=== PATIENT | female | born 1935 | race Caucasian/White ===

== ENCOUNTER 2016-04-23 15:48 | Emergency (ER) | payer MEDICARE, MEDICAID ==
[~2016-04-23] VITALS: Ht 172.7 cm; Wt 81.6 kg
[~2016-04-23 15:48] MED LIST: ALBU8.5H4 IH; ASPI325T32 PO; BIMA2.5D5 OD; BOTOX; CARV12.52 PO; CYCL5TAB PO; FURO40TA4 PO; LEVO112T4 PO; LIDO5CRE13 TOP; LIP40 PO; MONT10TA20 PO; OMEP40CA36 PO; POLY119P4 PO; POTA20TA7 PO; PSYL425P3 PO; THIO300C PO
[2016-04-23 16:00] VITALS: BP 141/82; PULSE 75; RESP 15; O2SAT 98
[2016-04-23 17:12] LABS: BASOPHILS % (AUTO) 0.6 % (0-3); EOSINOPHILS % (AUTO) 6.6 % (0-5); MONOCYTES % (AUTO) 11.7 % (4-12); Mean Corpuscular Hemoglobin 27.9 pg (27.0-35.0); Mean Corpuscular Volume 88.3 fL (81-100); NEUTROPHILS % (AUTO) 52.8 % (40-74); Platelet Count 188 bil/L (150-400)
[2016-04-23 17:36] LABS: Magnesium 1.9 mg/dL (1.6-2.6)
--- NOTE | 2016-04-23 18:37 | ED.REPORT ---
HPI-General Illness Date of Service Apr 23, 2016 ED Provider: MD Dillon This is an 81 year old female with a history of CHF, COPD, CAD, HTN, hyperlipidemias, [place] presenting to the emergency department complaining of abdominal cramping of unknown onset. Reports constipation, increased flatulence , acid reflux, esophageal burning, and indigestion which has caused decreased PO intake. Denies fever, chills, abdominal pain, diarrhea, nausea, and vomiting. These symptoms have been going on for over one month, and the patient has been seeing her primary care physician for them. She reports that she can swallow foods down into her throat, but then she feels as though they get stuck in the middle of her chest. Nursing Notes Stated Complaint: HARD TO SWOLLOW/BOWEL BLOCKAGE Chief Complaint: Female Abdominal Pain Nursing Notes Reviewed: Yes Allergies: Coded Allergies: codeine (Verified Allergy, Unknown, 11/09/15) Scheduled Alpha Lipoic Acid (Alpha Lipoic Acid) 300 Mg Capsule 300 MG PO BID Aspirin (Aspirin) 325 Mg Tablet.dr 325 MG PO DAILY Atorvastatin (Lipitor) 40 Mg Tablet 40 MG PO DAILY Bimatoprost (Lumigan) 45 Drop/2.5 Ml Ophsoln 45 DROP OD HS Carvedilol (Carvedilol) 12.5 Mg Tablet 12.5 MG PO BID Furosemide (Furosemide) 40 Mg Tablet 40 MG PO DAILY Levothyroxine (Levothyroxine) 112 Mcg Tablet 112 MCG PO DAILY Montelukast (Singulair) 10 Mg Tablet 10 MG PO HS Omeprazole (Omeprazole) 40 Mg Capsule.dr 40 MG PO DAILYAC PRN Polyethylene Glycol 3350 (Miralax) 119 Gm Powder 119 GM PO BID Potassium Chloride ER (Klor-Con M20) 20 Meq Tab.er.prt 20 MEQ PO DAILYWM Psyllium Seed (Metamucil) 425 Gm Powder 425 GM PO BID Scheduled PRN Albuterol HFA (Albuterol HFA) 8.5 Gm Hfa.aer.ad 1 PUFF IH Q4 PRN PRN For Shortness of Breath Cyclobenzaprine (Cyclobenzaprine) 5 Mg Tablet 5 MG PO HS PRN PRN Spasm Miscellaneous Medications ([Botox]) Q 3 MONTHS HEADACHES Lidocaine/Prilocaine (Emla Cream) 5 Gm Kit 5 GM TOP WITH BOTOX INJECTIONS Q 3 MONTHS General Time Seen by : 18:37 Chief Complaint Other Hx Obtained From: Patient Arrived By: Walk-in Sudden in Onset?: No Symptom Duration: Since onset Severity: Current: No pain currently Pertinent Negative: Pt denies other symptoms Recent Healthcare: No recent doctor visit, No recent hospitalization Similar Sx Previous: No Past Medical History Past Medical History History of constipation, questionable previous partial obstruction Vaginal prolapse - planned to have surgery for this Hx of drop neck, 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 Reports: COPD, Congestive heart failure, Coronary artery disease, Hyperlipidemia , Hypertension Past Surgical History Surgery for nephrolithiasis Stent placement Cardiac catheterization Reports: Hysterectomy Family History Noncontributory Smoking History Former Smoker Social History Alcohol Use: Denies alcohol use Drug Use: Denies drug use Other Social History: Good social support, Local resident Ambulatory Status Independent Review of Systems Full Review of Systems Constitutional: Denies: Chills, Fever Respiratory: Denies: Parox nocturnal dyspnea, Shortness of breath GI: Reports: Abdominal pain, Denies: Constipation, Diarrhea, Nausea, Vomiting Female: Denies: Dysuria Complete sys rev & neg: except as marked. Physical Exam Vital Signs Vital Signs Date Time Temp Pulse Resp B/P Pulse Ox O2 Delivery O2 Flow Rate FiO2 04/23/16 19:56 36 75 15 141/82 98 Room Air 04/23/16 16:00 36 75 15 141/82 98 Room Air Initial VS: Reviewed General/Constitutional: Well-developed, Well-nourished Head / Eyes: Atraumatic, Normocephalic, PERRL ENT: Mucous membranes moist, Conjunctiva normal, No scleral icterus Neck: Supple, Non-tender, Full range of motion Respiratory: Breath sounds normal, Clear to auscultation, No respiratory distress Cardiovascular: Regular rate & rhythm, Heart sounds normal, Intact distal pulses Extremities: Vascular intact, Neuro intact, No swelling, No tenderness Skin: Warm, Dry, No cyanosis Psychiatric: Mood/affect normal, Behavior normal, Normal thought content Abdomen: Soft, Non-tender, No guarding, No rebound, BS normoactive Neurologic: Oriented X3, Speech NL, No motor deficits, No sensory deficits, CN II - XII intact Interpretation & Diagnostics Interpretation & Diagnostics: ABD X-RAY IMPRESSION: 1. Moderate colonic stool distention suggestive of constipation. No evidence of obstruction. 2. Mild prominence of right hilum likely due to low lung volumes. Consider repeat PA and lateral study when clinically feasible. Dictated by: Yash Gallo M.D. on 04/23/2016 at 19:16 Approved by: Yash Gallo M.D. on 04/23/2016 at 19:24 Lab Results Interpretation Result Diagram: 04/23/16 1700 04/23/16 1700 Test 04/23/16 17:00 White Blood Count 6.9th/mm3 (3.8-10.1) Red Blood Count 4.26mil/mm3 (3.90-5.20) Hemoglobin 11.9g/dL (12.0-15.6) Hematocrit 37.6% (35.0-46.0) Mean Corpuscular Volume 88.3fL (81-100) Mean Corpuscular Hemoglobin 27.9pg (27.0-35.0) Mean Corpuscular Hemoglobin Concent 31.6% (32.0-37.0) Red Cell Distribution Width 15.1% (12.3-15.4) Platelet Count 188bil/L (150-400) Neutrophils (%) (Auto) 52.8% (40-74) Lymphocytes (%) (Auto) 28.2% (14-46) Monocytes (%) (Auto) 11.7% (4-12) Eosinophils (%) (Auto) 6.6% (0-5) Basophils (%) (Auto) 0.6% (0-3) Sodium Level 140mEq/L (134-144) Potassium Level 4.8mEq/L (3.5-5.2) Chloride Level 104mEq/L (97-108) Carbon Dioxide Level 25mmol/L (18-29) Blood Urea Nitrogen 19mg/dL (8-27) Creatinine 0.78mg/dL (0.57-1.00) Estimat Glomerular Filtration Rate 102mL/min (>59) Glucose Level 97mg/dL (60-99) Calcium Level 8.9mg/dL (8.5-10.1) Magnesium Level 1.9mg/dL (1.6-2.6) Total Bilirubin 0.2mg/dL (0.0-1.2) Aspartate Amino Transf (AST/SGOT) 17U/L (0-50) Alanine Aminotransferase (ALT/SGPT) 13U/L (0-32) Alkaline Phosphatase 87U/L (25-165) Total Protein 6.3g/dL (6.4-8.4) Albumin 3.7g/dL (3.4-5.0) Lipase 23U/L (13-60) Hold Carrasquillo Top Tube Received (Received) Re-Eval/Medical Decision Med Decision/Clinical Course 81-year-old female with extensive past medical history who is here with constipation and feeling of incomplete swallowing. Differential diagnosis includes but is not limited to achalasia versus constipation versus bowel perforation versus stroke. Patient's exam is not consistent with bowel perforation, and the way she describes her difficulty swallowing as not consistent with stroke. Additionally, the symptoms have been going on for over a month, and she has been seeing her primary care physician for them. At this time, I do not feel she requires workup for stroke or bowel perforation. Her abdominal x-ray showed stool but was otherwise unremarkable, and her labs were unremarkable. She is amenable to discharge at this time with follow-up with her primary care physician or likely outpatient swallow study. He has been given very strict return precautions. Counseled Regarding: Diagnosis, Lab results, Need for follow-up, When/why to return to ED Discharge & Departure Primary Impression: Constipation Constipation type: unspecified constipation type Qualified Code: K59.00 - Constipation, unspecified Disposition: Home Discharge Condition All VS Reviewed: Yes Condition: Stable Patient Instructions: Constipation (ED) Additional Instructions: Thank you for seeking care at the emergency department today. Your workup was reassuring. Please follow up with Dr. Rodriguez for further evaluation of your symptoms. Return to the emergency department for any new or worsening symptoms Referrals: Neville Rodriguez MD (PCP) Scribe Attestation Portions of this note were transcribed by Susan Garsia. I, Dr. Carranza personally performed the history, physical exam and medical decision-making; I reviewed and confirmed the accuracy of the information in the transcribed note. Signed by: rosemary Larson. 04/23/2016, 23:00. Marisa Carranza MD Apr 23, 2016 18:37 SUSAN GARSIA Apr 23, 2016 18:40
--- NOTE | 2016-04-23 19:26 | DRSVH ---
PROCEDURE: X-RAY ACUTE ABDOMINAL SERIES ([id number]) INDICATIONS: possible blockage TECHNIQUE: One view chest and two views of the abdomen were acquired. COMPARISON: [facility], , CHEST 1VW (PORTABLE), 07/22/2014, 7:12. FINDINGS: Surgical changes and devices: There is surgical clips in the right upper quadrant. Chest: There low lung volumes without consolidation. Mild prominence of the right hilum is likely du e to low volumes. Heart size is normal. No pleural effusions. No pneumoperitoneum. Abdomen: Bowel gas pattern demonstrates moderate colonic stool distention suggestive of constipation . No dilated bowel loops or air-fluid levels to suggest obstruction. There are a few scattered vasc ular calcifications. Bones: No suspicious bony lesions. IMPRESSION: 1. Moderate colonic stool distention suggestive of constipation. No evidence of obstruction. 2. Mild prominence of right hilum likely due to low lung volumes. Consider repeat PA and lateral st udy when clinically feasible. Dictated by: Yash Gallo M.D. on 04/23/2016 at 19:16 Approved by: Yash Gallo M.D. on 04/23/2016 at 19:24
[2016-04-23 19:56] VITALS: BP 141/82; PULSE 75; RESP 15; O2SAT 98
== END 2016-04-23 19:57 | disposition home or self-care (01) ==
LOC: SED 15:48
DX: K59.00 Constipation, unspecified (principal); R10.9 Unspecified abdominal pain; I50.9 Heart failure, unspecified; J44.9 Chronic obstructive pulmonary disease, unspecified; I10 Essential (primary) hypertension; I25.10 Atherosclerotic heart disease of native coronary artery without angina pectoris; E78.5 Hyperlipidemia, unspecified; Z98.61 Coronary angioplasty status; Z87.891 Personal history of nicotine dependence; Z88.5 Allergy status to narcotic agent; Z79.82 Long term (current) use of aspirin

== ENCOUNTER 2016-07-31 12:47 | Emergency (ER) | payer MEDICARE, MEDICAID ==
[~2016-07-31] VITALS: Ht 170.2 cm; Wt 79.5 kg
[2016-07-31 12:51] VITALS: BP 153/73; PULSE 80; RESP 16; O2SAT 99
[2016-07-31] MEDS ORDERED: CARB1TAB14 PO (12:57)
[2016-07-31] MEDS ORDERED: DIAZ2TAB2 PO (12:57)
--- NOTE | 2016-07-31 12:58 | ED.REPORT ---
HPI-General Illness Date of Service July 31, 2016 ED Provider: Rodrigue Cortez MD Patient is an 81 year old female with a history of Parkinson's, [place], COPD, stent placement who presents to the ED complaining of bilateral leg swelling onset a month ago. Associated symptoms include her legs feeling warm to the touch. She denies chest pain or shortness of breath. The patient states that she normally has some edema in her legs but it has been getting progressively worse. She has tried compression socks but her legs have become more swollen, causing pain and difficulty getting the socks off. Patient denies a history of CHF. The patient currently takes 40mg of Lasix and recently started taking Leva Dopa for Parkinson's. She was seen two weeks ago by Dr. Rodriguez, who recommended she have an ultrasound to check for a possible DVT. Nursing Notes Stated Complaint: RIGHT LEG/FEET SWOLLEN Chief Complaint: General Complaint Nursing Notes Reviewed: Yes Allergies: Coded Allergies: codeine (Verified Allergy, Unknown, 07/31/16) Scheduled Alpha Lipoic Acid (Alpha Lipoic Acid) 300 Mg Capsule 300 MG PO BID Aspirin (Aspirin) 325 Mg Tablet.dr 325 MG PO DAILY Atorvastatin (Lipitor) 40 Mg Tablet 40 MG PO DAILY Carbidopa/Levodopa 25-100 mg (Carbidopa/Levodopa 25-100 mg) 1 Each Tablet 1 TABLET PO TID Carvedilol (Carvedilol) 12.5 Mg Tablet 12.5 MG PO BID Furosemide (Furosemide) 40 Mg Tablet 40 MG PO DAILY Levothyroxine (Levothyroxine) 112 Mcg Tablet 112 MCG PO DAILY Omeprazole (Omeprazole) 40 Mg Capsule.dr 40 MG PO DAILYAC PRN Polyethylene Glycol 3350 (Miralax) 119 Gm Powder 119 GM PO BID Potassium Chloride ER (Klor-Con M20) 20 Meq Tab.er.prt 20 MEQ PO DAILYWM Psyllium Seed (Metamucil) 425 Gm Powder 425 GM PO BID Scheduled PRN Albuterol HFA (Albuterol HFA) 8.5 Gm Hfa.aer.ad 1 PUFF IH Q4 PRN PRN For Shortness of Breath Diazepam (Diazepam) 2 Mg Tablet 2 MG PO BID PRN PRN For Anxiety Miscellaneous Medications ([Botox]) Q 3 MONTHS HEADACHES General Time Seen by MD: 12:57 Chief Complaint Other (bilateral leg swelling) Hx Obtained From: Patient Arrived By: Walk-in Sudden in Onset?: No Onset Occurred: More than a week ago... (1 month) Symptom Duration: Since onset Location: : Ankle left: Ankle right: Foot left: Foot right Associated with: Denies: Chest pain, Shortness of breath Recent Healthcare: No recent hospitalization, Recent doctor visit Similar Sx Previous: Yes Past Medical History Past Medical History History of constipation, questionable previous partial obstruction Vaginal prolapse - planned to have surgery for this Hx of drop neck, followed by Dr. Malena BOOTHE Parkinson's Reports: COPD, Coronary artery disease, Hyperlipidemia, Hypertension Past Surgical History Surgery for nephrolithiasis Stent placement Cardiac catheterization Reports: Hysterectomy Family History Noncontributory Smoking History Former Smoker Social History Alcohol Use: Denies alcohol use Drug Use: Denies drug use Other Social History: Good social support, Local resident Ambulatory Status Independent Review of Systems Full Review of Systems Respiratory: Denies: Non-productive cough, Shortness of breath Cardiovascular: Denies: Chest pain Musculoskeletal: Reports: Extremity swelling (both legs), Denies: Extremity pain Complete sys rev & neg: except as marked. Physical Exam Vital Signs Vital Signs Date Time Temp Pulse Resp B/P Pulse Ox O2 Delivery O2 Flow Rate FiO2 07/31/16 12:51 36.2 80 16 153/73 99 Room Air Initial VS: Reviewed General/Constitutional: Awake, Alert Head / Eyes: Atraumatic, Normocephalic, PERRL, EOMI ENT: Atraumatic, Airway patent, Mucous membranes moist Respiratory / Chest: Atraumatic, Breath sounds NL, Breath sounds = bilat, No respiratory distress Cardiovascular: Heart rate NL, Regular rhythm, Heart sounds NL, No gallop, No murmurs, No rubs LOWER EXTREMITIES: 2+ bilateral pitting edema extending up to the knee mild erythema bilateral pre-tibial region palpable cords Skin: Atraumatic, Color NL, No rash, Warm, Dry Neurologic: Oriented X3, Speech NL, No motor deficits, No sensory deficits no lateralizing neurological findings Psychiatric: Affect NL, Mood NL Interpretation & Diagnostics Interpretation & Diagnostics: VENOUS DUPLEX US: IMPRESSION: No DVT in the lower extremities bilaterally. Dictated by: Samy Castillo M.D. on 07/31/2016 at 14:44 Approved by: Samy Castillo M.D. on 07/31/2016 at 14:45 Lab Results Interpretation Result Diagram: 07/31/16 1435 07/31/16 1435 Test 07/31/16 14:35 White Blood Count 6.8th/mm3 (3.8-10.1) Red Blood Count 4.28mil/mm3 (3.90-5.20) Hemoglobin 11.7g/dL (12.0-15.6) Hematocrit 37.8% (35.0-46.0) Mean Corpuscular Volume 88.3fL (81-100) Mean Corpuscular Hemoglobin 27.3pg (27.0-35.0) Mean Corpuscular Hemoglobin Concent 31.0% (32.0-37.0) Red Cell Distribution Width 14.0% (12.3-15.4) Platelet Count 192bil/L (150-400) Neutrophils (%) (Auto) 51.4% (40-74) Lymphocytes (%) (Auto) 27.7% (14-46) Monocytes (%) (Auto) 13.2% (4-12) Eosinophils (%) (Auto) 7.2% (0-5) Basophils (%) (Auto) 0.4% (0-3) Sodium Level 142mEq/L (134-144) Potassium Level 4.4mEq/L (3.5-5.2) Chloride Level 105mEq/L (97-108) Carbon Dioxide Level 27mmol/L (18-29) Blood Urea Nitrogen 17mg/dL (8-27) Creatinine 0.83mg/dL (0.57-1.00) Estimat Glomerular Filtration Rate 95mL/min (>59) Glucose Level 97mg/dL (60-99) Calcium Level 9.6mg/dL (8.5-10.1) Magnesium Level 2.0mg/dL (1.6-2.6) Total Bilirubin 0.3mg/dL (0.0-1.2) Aspartate Amino Transf (AST/SGOT) 19U/L (0-50) Alanine Aminotransferase (ALT/SGPT) 9U/L (0-32) Alkaline Phosphatase 109U/L (25-165) Troponin T < 0.010ug/L (0.0-0.011) Pro-B-Type Natriuretic Peptide 210.2pg/mL (0-738) Total Protein 6.5g/dL (6.4-8.4) Albumin 3.5g/dL (3.4-5.0) Hold Carrasquillo Top Tube Received (Received) ECG Interpretation ECG Interpretation: normal axis, normal interval no ST segment elevation no T wave abnormalities no acute changes from EKG on 07/22/14 Time: 13:35 Interpreted by: ED physician Normal ECG Interpretation: Normal rate (69), Normal sinus rhythm X-Ray Chest Interpretation Chest Xray Interpretation: IMPRESSION: 1. No definite evidence of pulmonary edema or cardiomegaly as clinically queried. 2. Findings compatible with COPD. Dictated by: Yash Gallo M.D. on 07/31/2016 at 13:08 Approved by: Yash Gallo M.D. on 07/31/2016 at 13:10 View: Portable, 1 view Interpretation / Wet Read by: Interpret - Radiologist Re-Eval/Medical Decision Med Decision/Clinical Course Patient is an 81 year old female with a history of Parkinson's, [place], COPD, stent placement who presents to the ED complaining of bilateral leg swelling onset a month ago. Associated symptoms include her legs feeling warm to the touch. She denies chest pain or shortness of breath. The patient states that she normally has some edema in her legs but it has been getting progressively worse. She has tried compression socks but her legs have become more swollen, causing pain and difficulty getting the socks off. Patient denies a history of CHF. The patient currently takes 40mg of Lasix and recently started taking Leva Dopa for Parkinson's. She was seen two weeks ago by Dr. Rodriguez, who recommended she have an ultrasound to check for a possible DVT. Here in the emergency department the patient is afebrile stable vital signs and examination as above. My clinical suspicion for deep venous thrombosis is relatively low. I opted to proceed with an ultrasound as patient was sent here with this concern. Bilateral lower extremity duplex demonstrates no findings and assisted with deep venous thrombosis. CBC and CMP were unremarkable. Chest x-ray demonstrated no focal consolidations or pulmonary edema. Overall presentation consistent with dependent edema. Recommend elevation of the legs, compression stockings and follow up with primary care physician. Patient has been prescribed diuretics and may continue to take these as well. Patient has quite a bit of trouble applying compression stockings and therefore I have provided her with Joseph bandage wrapped to the bilateral lower extremities in order to provide a little bit of compression as otherwise she is not using any compression whatsoever. I feel that she is appropriate for discharge. Prior to discharge follow-up and return precautions were reviewed in detail with the patient and her son who verbalized understanding and agreement with the plan. The patient was discharged in stable condition. Time of Eval: 15:30 Re-Evaluation/Progress Note: Discussed plan for discharge. The patient understands and agrees to the plan for discharge. All questions were addressed. Counseled Regarding: Diagnosis, Lab results, Need for follow-up, When/why to return to ED Discharge & Departure Primary Impression: Lower extremity edema Laterality: bilateral Qualified Code: R60.0 - Localized edema Additional Impressions: Dependent edema Lower extremity pain Laterality: bilateral Qualified Code: M79.604 - Pain in right leg Disposition: Home Discharge Condition All VS Reviewed: Yes Condition: Stable Patient Instructions: Leg Edema (ED) Additional Instructions: Thank you for seeking care at the emergency room. It is difficult for us to make definitive diagnoses in the ED but we believe that you are experiencing leg edema in both your legs. The ultrasound showed no evidence of blood clots or findings of heart failure. Our primary goal today in the ED was to evaluate you for any life-threatening conditions. Your evaluation was reassuring. Continue taking your diuretic pills. Try using the JOSEPH bandages instead of the compression stockings. You can try different brands of the compression socks or try using the compression socks after using the JOSEPH bandages and the swelling goes down. Try to elevate your legs as much as possible, so that they are above your heart. The best way to stay elevated is to lay flat on the couch and put your legs up on the arm rest, above your heart. Laying on your back with pillows under your legs, could also help drain the fluid while you sleep. You should follow-up with your primary doctor in the next week. You should return to the ED immediately if you develop fevers, vomiting, cough, shortness of breath, lightheadedness, weakness or any other concerning signs or symptoms. Thank you for letting us partake in your care today. Referrals: Neville Rodriguez MD (PCP) Scribe Attestation Portions of this note were transcribed by Salma Hooker. I, Dr. Cortez personally performed the history, physical exam and medical decision-making; I reviewed and confirmed the accuracy of the information in the transcribed note. Signed by: Adeola Mckeon, 07/31/16 and 1318 copies to: Neville Rodriguez MD, Beck O MD July 31, 2016 12:58 Maggi Hooker July 31, 2016 13:13 copies to: Neville Rodriguez MD, Beck O MD July 31, 2016 12:58 Maggi Hooker July 31, 2016 13:13
--- NOTE | 2016-07-31 14:11 | DRSVH ---
PROCEDURE: X-RAY CHEST, TWO VIEWS ([id number]) INDICATIONS: assess for pulmonary edema, cardiomegaly TECHNIQUE: 2 views of the chest were acquired. COMPARISON: [facility], , CHEST 1VW (PORTABLE), 07/22/2014, 7:12. FINDINGS: Surgical changes and devices: None. Lungs and pleura: No pleural effusions or pneumothorax. There is hyperinflation of the lungs with fl attening of the hemidiaphragms compatible with COPD. Lungs are clear. Mediastinum: Mediastinal contours are normal. Heart size is within normal limits. Bones and chest wall: No suspicious bony abnormalities. There is a dextroscoliosis of the thoracolu mbar spine. Soft tissues appear unremarkable. IMPRESSION: 1. No definite evidence of pulmonary edema or cardiomegaly as clinically queried. 2. Findings compatible with COPD. Dictated by: Yash Gallo M.D. on 07/31/2016 at 13:08 Approved by: Yash Gallo M.D. on 07/31/2016 at 13:10
[2016-07-31 14:44] LABS: BASOPHILS % (AUTO) 0.4 % (0-3); EOSINOPHILS % (AUTO) 7.2 % (0-5); MONOCYTES % (AUTO) 13.2 % (4-12); Mean Corpuscular Hemoglobin 27.3 pg (27.0-35.0); Mean Corpuscular Volume 88.3 fL (81-100); NEUTROPHILS % (AUTO) 51.4 % (40-74); Platelet Count 192 bil/L (150-400)
--- NOTE | 2016-07-31 14:46 | DRSVH ---
PROCEDURE: US VENOUS LEG DUPLEX BILATERAL INDICATIONS: Bilateral soft tissue edema in feet. TECHNIQUE: Real-time imaging, as well as color and pulse Doppler interrogation, were performed of the deep veins of both legs from the inguinal ligament to the popliteal fossa. COMPARISON: None. FINDINGS: The deep veins are normally compressible, and free of intraluminal thrombus. Color and pu lse Doppler demonstrate normal phasic intravascular flow. There is normal augmentation response to d istal compression maneuver. IMPRESSION: No DVT in the lower extremities bilaterally. Dictated by: Samy Castillo M.D. on 07/31/2016 at 14:44 Approved by: Samy Castillo M.D. on 07/31/2016 at 14:45
[2016-07-31 15:07] LABS: TROPONIN T < 0.010 ug/L (0.0-0.011)
[2016-07-31 15:51] VITALS: BP 128/72; PULSE 69; RESP 18; O2SAT 98
== END 2016-07-31 15:52 | disposition home or self-care (01) ==
LOC: SED 12:47
DX: R60.0 Localized edema (principal); M79.604 Pain in right leg; M79.605 Pain in left leg; I11.9 Hypertensive heart disease without heart failure; I25.10 Atherosclerotic heart disease of native coronary artery without angina pectoris; I25.2 Old myocardial infarction; E78.5 Hyperlipidemia, unspecified; J44.9 Chronic obstructive pulmonary disease, unspecified; G20 Parkinson's disease; Z79.82 Long term (current) use of aspirin; Z95.5 Presence of coronary angioplasty implant and graft; Z87.891 Personal history of nicotine dependence; Z88.5 Allergy status to narcotic agent